=== PATIENT | male | born 1970 | race Caucasian/White ===

== ENCOUNTER 2024-03-19 11:38 | Observation (INO) | payer BC, MEDICAID, SELFPAY ==
[2024-03-19] VITALS (8 sets, daily range): BP systolic 119–131; BP diastolic 70–91; PULSE 82–102; RESP 16–20; TEMP 36.3–37.1; O2SAT 97–100; BMI 26.2; BMI 26.4
--- NOTE | ~2024-03-19 | CT_ITS ---
EXAMINATION: CTA chest PE abdomen pel DATE: 03/19/2024 16:04 INDICATION: Chest pain, shortness of breath, elevated d-dimer. Abdominal pain. TECHNIQUE: Computed tomography angiography (CTA) of the chest was performed with 100 mL Omnipaque-350 intravenous contrast timed to evaluate the pulmonary arteries. Coronal maximum intensity projection 3D-reconstructions were created by the technologist. Automated exposure control and iterative reconst ruction technique were employed. Exam dose: 852.49 mGy-cm total exam DLP. COMPARISON: None. FINDINGS: There is prominent pericardial effusion. There is enhancement of the pericardium consistent with pericarditis. No thoracic aortic aneurysm or dissection. Mild prominence of the hilar and mediastinal lymph nodes, which may be reactive. Mild left pleural effusion. Bullous changes noted in both apical areas and to a lesser extent the lower lobes. There is bibasilar infiltrate or atelectasis, primarily on the left. Small sliding hiatal hernia. Multiple gallstones are noted, in the 10 mm range. No gallbladder wall thickening or pericholecystic fluid or fat stranding. The liver, spleen, pancreas and the bile ducts and pancreatic duct are normal. Normal morphology of the adrenal glands. No renal mass lesion or urinary tract calculus or hydroureteronephrosis. There is prostate enlargement calcifications. Moderate diffuse thickening of the urinary bladder wall , likely due to the prostatomegaly. Normal caliber of the abdominal aorta. No intraperitoneal or retroperitoneal or pelvic mass lesion or adenopathy or ascites. Normal appendix. No bowel obstruction or intraperitoneal free air. Very small fat-containing left inguinal hernia. Approximately 1.6 x 2.2 cm fat-containing umbilical hernia. No suspicious osteolytic or osteoblastic lesions are noted. IMPRESSION: Pericarditis, prominent pericardial effusion Bibasilar lobe dependent atelectasis, left greater than right Mild left pleural effusion Cholelithiasis Prostate enlargement calcifications, moderate diffuse bladder wall thickening Small sliding hiatal hernia. Normal appendix Reviewed, dictated and finalized at [facility]. Reviewed, dictated and finalized at [facility].
--- NOTE | ~2024-03-19 | XR_ITS ---
EXAMINATION: XR chest 2V DATE: 03/19/2024 12:07 INDICATION: Shortness of breath. Chest pain. TECHNIQUE: Frontal and lateral views of the chest were obtained. COMPARISON: None. FINDINGS: There is a small left pleural effusion. There are airspace opacities at left lung base. The re is mild scarring at the lung apices. No pneumothorax. The heart size is normal. IMPRESSION: 1. Small left pleural effusion. 2. Airspace opacities at left lung base, consistent with atelectasis versus pneumonia. Reviewed, dictated and finalized at [facility]. IMPRESSION: 1. Small left pleural effusion. 2. Airspace opacities at left lung base, consistent with atelectasis versus pne umonia.
--- NOTE | ~2024-03-19 | XR_ITS ---
EXAMINATION: XR chest 1V portable DATE: 03/21/2024 09:13 INDICATION: Leukocytosis. TECHNIQUE: frontal view of the chest was obtained. COMPARISON: Chest radiograph and CT dated 03/19/2024 FINDINGS: Unchanged right apical pleural-parenchymal scarring with some bullous changes related to emphysema at the paramediastinal right upper lobe. The prior small left pleural effusion has resolved. There is a persistent airspace opacity in the left lower lung zone which could represent atelectasis or pneumon ia. No pulmonary edema, pleural effusion or pneumothorax. Heart size is normal. IMPRESSION: 1. Persistent airspace opacity left lower lung zone which could represent atelectasis or pneumonia. 2. Mild emphysema. Reviewed, dictated and finalized at location [facility]. IMPRESSION: 1. Persistent airspace opacity left lower lung zone which could represent atele ctasis or pneumonia. 2. Mild emphysema.
--- NOTE | 2024-03-19 11:42 | ECG_ITS ---
Test Date: 2024-03-19 11:44:06 Measurements Intervals [place] Rate: 101 P: 34 LA: 164 QRS: 15 QRSD: 104 T: 85 QT: 305 QTc: 395 Interpretive Statements SINUS TACHYCARDIA POSSIBLE LEFT ATRIAL ENLARGEMENT INCOMPLETE RIGHT BUNDLE BRANCH BLOCK MINIMAL Q WAVES- ANTEROLATERAL LEADS BORDERLINE T WAVE ABNORMALITY- DIFFUSE LEADS BORDERLINE ECG No previous ECG available for comparison Electronically Signed On 03-19-2024 12:47:15 CDT by Khoi Ni D.O.
[2024-03-19 12:06] LABS: Basophils Absolute Auto 0.1 K/mm3 (0.0-0.1); Basophils Percent Auto 0.5 % (0.2-1.2); Eosinophils Absolute Auto 0.4 K/mm3 (0-0.3); Eosinophils Percent Auto 2.1 % (0-4.4); Hematocrit 39.1 % (42.0-52.0); Hemoglobin 12.8 g/dL (14.0-18.0); Immature Granulocyte Absolute 0.13 K/mm3 (0.00-0.031); Immature Granulocyte Percent A 0.7 % (0-0.5); Lymphocytes Absolute Auto 2.36 K/mm3 (0.9-3.2); Lymphocytes Percent Auto 11.9 % (18.3-44.2); Mean Corpuscular HGB Conc 32.7 g/dl (32-36); Mean Corpuscular Hemoglobin 30.3 pg (26-34); Mean Corpuscular Volume 92.7 fl (80-100); Mean Platelet Volume 8.9 fl (7.4-10.4); Monocytes Absolute Auto 1.9 K/mm3 (0.1-0.6); Monocytes Percent Auto 9.5 % (2.6-8.5); Neutrophils Absolute Auto 14.9 K/mm3 (1.3-6.7); Neutrophils Percent Auto 75.3 % (45.5-73.1); Platelet Count Result 725 k/mm3 (150-375); Red Blood Count 4.22 M/mm3 (4.6-6.20); Red Cell Distribution Width 14.7 % (11.5-14.5); White Blood Count 19.8 K/mm3 (4.5-10.0)
[2024-03-19 12:17] LABS: INR 1.2; Prothrombin Time 15.1 Seconds (11.1-14.7)
[2024-03-19 12:19] LABS: Alanine Aminotransferase 90 U/L (6-50); Albumin Level 3.8 g/dL (3.5-5.1); Alkaline Phosphatase 197 U/L (38-126); Anion Gap 9 mmol/L (4-12); Aspartate Amino Transferase 40 U/L (17-59); Bilirubin,Total 0.6 mg/dL (0.2-1.3); Blood Urea Nitrogen 13 mg/dL (9-20); Carbon Dioxide 26 mmol/L (22-30); Chloride 98 mmol/L (98-107); Estimated CRCL calculation 92 ml/min; Estimated Glomerular Filt Rate > 60; Glucose 165 mg/dL (65-110); Lipase 49 U/L (23-300); Potassium 4.4 mmol/L (3.4-5.0); Sodium 133 mmol/L (137-145)
[2024-03-19 12:30] LABS: Troponin I < 0.012 ng/mL (0.000-0.034)
--- NOTE | 2024-03-19 14:14 | ED.SOB ---
HPI - SOB/Dyspnea General Chief Complaint: Shortness of Breath/Dyspnea <MALATHI Rebollar Last Filed: 03/19/24 18:42> Stated Complaint: SOB, pain <MALATHI Rebollar Last Filed: 03/19/24 18:42> Time Seen by Provider: 03/19/24 14:12 <MALATHI Rebollar Last Filed: 03/19/24 18:42> Source: patient <MALATHI Rebollar Last Filed: 03/19/24 18:42> Mode of arrival: ambulatory <MALATHI Rebollar Last Filed: 03/19/24 18:42> Limitations: no limitations <MALATHI Rebollar Last Filed: 03/19/24 18:42> History of Present Illness HPI Narrative: This is a 53-year-old male that presents to the emergency department for left-sided chest /abdominal pain. Ongoing over the last several days. Associated with fevers, cough, congestion. Reports he feels dehydrated. Reports shortness of breath. Denies vomiting or diarrhea. <MALATHI Rebollar Last Filed: 03/19/24 18:42> Related Data Home Medications: Home Medications Medication Instructions Recorded Confirmed No Home Medications 03/19/24 03/19/24 <MALATHI Rebollar Last Filed: 03/19/24 18:42> Allergies/Adverse Reactions: Allergies Allergy/AdvReac Type Severity Reaction Status Date / Time No Known Allergies Allergy Verified 03/19/24 15:11 <MALATHI Rebollar Last Filed: 03/19/24 18:42> Review of Systems Review of Systems: CONSTITUTIONAL: Denies fever ENT: Reports congestion. Denies sore throat CARDIOVASCULAR: Reports chest pain. Denies edema. RESPIRATORY: Reports cough or dyspnea. GASTROINTESTINAL: Reports abdominal pain, nausea. Denies vomiting, or diarrhea. GENITOURINARY: Denies dysuria or hematuria. <MALATHI Rebollar Last Filed: 03/19/24 18:42> All systems reviewed & are unremarkable except as noted in HPI and below <MALATHI Rebollar Last Filed: 03/19/24 18:42> [facility] Past Medical History Medical History: Medical History (Updated 03/19/24 @ 23:35 by Annette Rai PA-C) Nicotine dependence Pericarditis (2017) <Janae Samuel PA-C - Last Filed: 03/19/24 18:42> Surgical History Surgical History: Surgical History (Updated 03/19/24 @ 23:29 by Annette Rai PA-C) History of arthroscopic knee surgery Hip to wrist. History of bone graft <Janae Samuel PA-C - Last Filed: 03/19/24 18:42> Family History Family History: Family History Father Cerebrovascular accident Sibling Systemic lupus erythematosus <Janae Samuel PA-C - Last Filed: 03/19/24 18:42> Social History Social History: Social History (Updated 03/19/24 @ 23:31 by Annette Rai PA-C) Social History: Surrogate medical decision maker: Samira Dunn. Code status: Full code. Smoking packs per day: 1 Smoking cigarettes per day: 20.0 Years smoked: 25 Smoking pack-years: 25.00 Smoking status: Current every day smoker Tobacco type: cigarettes Alcohol intake: former Substance use: current Substance use type: marijuana Do You Feel Safe in your Home?: Yes Lack of Transportation: YES Lack of Food: Never True Current Housing: I Have Housing Concerned About Future Housing: No Difficulty Paying Gas/Electric Bills: No Difficulty Paying for Meds: No Currently Unemployed: No Education: Trade/Vocational Certificate Difficulty w/ Childcare or Family Care: No Additional living arrangements comments: Lives in [place], helps care for his elderly mother. Additional occupation/education comments: [employer]. Spiritual care concerns: Yes (episcopal) <Janae Samuel PA-C - Last Filed: 03/19/24 18:42> Exam Narrative: GENERAL: Well-appearing, well-nourished, and in no acute distress. HEAD: Normocephalic, atraumatic. EYES: EOMI. ENT: Nares clear, no rhinorrhea or epistaxis. Mucous membranes moist. Oropharynx without tonsillar hyper
[2024-03-19] MEDS: SODIUM CHLORIDE 0.9% IV 500 ML 999 ML IV CONT (15:13)
[2024-03-19] MEDS: KETOROLAC 15 MG/ML VIAL (*BKC) IV PUSH (15:13)
[2024-03-19 15:15] LABS: Troponin I < 0.012 ng/mL (0.000-0.034)
[2024-03-19 15:29] LABS: Influenza A QL RT-PCR Negative (Negative); Influenza B QL RT-PCR Negative (Negative); RSV RNA, RT-PCR Negative (Negative); SARS-CoV-2 RNA PCR Negative (Negative)
[2024-03-19 15:31] LABS: D Dimer 4.56 ug/mL (<0.48)
[2024-03-19 17:48] LABS: Lactic Acid Reflex 0.9 mmol/L (0.7-2.0)
[2024-03-19 17:58] LABS: Troponin I < 0.012 ng/mL (0.000-0.034)
[2024-03-19 18:05] LABS: CRP 17.4 mg/dL (<1.0)
[2024-03-19] MEDS: AZITHROMYCIN 500 MG/NS 250 ML 500 MG/250 ML BAG 250 MG IVPB (18:14)
[2024-03-19] MEDS: COLCHICINE 0.6 MG TABLET PO ×2 (18:14→20:22)
--- NOTE | 2024-03-19 19:03 | ADMGEN ---
This patient, Ravin Dunn, was admitted to IMU Room 213-01. Patient/family oriented to hospital policies and general routines including ID bracelet, bed and alarms, visiting hours, pain management, procedures, bathroom and other care routines, personal items, smoking policy, room service/diet, and visiting hours. Information on how to activate the Rapid Response Team has been discussed. Patient/Family are encouraged to report perceived risks to care and to ask questions if they do not understand what they are told or what they should do.
[2024-03-19] MEDS: IBUPROFEN 600 MG TABLET PO (20:22)
[2024-03-19 20:23] LABS: Erythrocyte Sedimentation Rate 90 mm/hr (0-20)
[2024-03-19 20:26] LABS: Procalcitonin 0.1 ng/mL
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
[2024-03-19] MEDS: MORPHINE SULFATE (*CRX) 2 MG/ML INJ IV PUSH (21:41)
[2024-03-20] VITALS (17 sets, daily range): BP systolic 103–124; BP diastolic 65–79; PULSE 67–90; RESP 18–20; TEMP 36.1–36.7; O2SAT 97–100
[2024-03-20 04:03] LABS: Mean Corpuscular HGB Conc 32.4 g/dl (32-36); Mean Corpuscular Hemoglobin 29.9 pg (26-34); Mean Platelet Volume 8.5 fl (7.4-10.4); Platelet Count Result 650 k/mm3 (150-375); Red Blood Count 4.02 M/mm3 (4.6-6.20); Red Cell Distribution Width 14.8 % (11.5-14.5); White Blood Count 16.4 K/mm3 (4.5-10.0)
[2024-03-20] MEDS: IBUPROFEN 600 MG TABLET PO ×3 (04:13→20:48)
[2024-03-20 04:14] LABS: Anion Gap 9 mmol/L (4-12); Blood Urea Nitrogen 13 mg/dL (9-20); Calcium 8.9 mg/dL (8.4-10.2); Carbon Dioxide 27 mmol/L (22-30); Chloride 99 mmol/L (98-107); Estimated CRCL calculation 83 ml/min; Estimated Glomerular Filt Rate > 60; Glucose 93 mg/dL (65-110); Magnesium 2.2 mg/dL (1.6-2.3); Potassium 5.4 mmol/L (3.4-5.0); Sodium 135 mmol/L (137-145)
[2024-03-20] MEDS: MORPHINE SULFATE (*CRX) 2 MG/ML INJ IV PUSH ×2 (04:14→21:57)
[2024-03-20 04:57] LABS: Strep Group A RT-PCR NOT DETECTED (Negative)
[2024-03-20] MEDS: COLCHICINE 0.6 MG TABLET PO ×2 (08:10→20:47)
--- NOTE | 2024-03-20 11:35 | PM.CNCAR ---
Assessment and Plan Assessment and plan (1) Pericarditis: Onset Date: 2016 Qualifiers: Chronicity: acute Pericarditis type: unspecified type Qualified Code(s): I30.9 - Acute pericarditis, unspecified Code(s): I31.9 - Disease of pericardium, unspecified Status: Acute Assessment and Plan: Chest pain worsens with inspiration, laying down. ESR and CRP are both elevated. Seems consistent with pericarditis, suspect possibly viral given his symptoms prior to presentation. Continue Colchicine 0.6mg BID and Ibuprofen 600mg Q8H. Echocardiogram ordered and pending. Should be on Colchicine for total of 3 months. Following the resolution of his chest pain, the Ibuprofen dose should be tapered down. (2) Pericardial effusion: Code(s): I31.39 - Other pericardial effusion (noninflammatory) Status: Acute Assessment and Plan: Prominent pericardial effusion noted on CT scan. No clinical evidence of tamponade. Echocardiogram ordered and pending, which will be done on Thursday. (3) Leukocytosis: Code(s): D72.829 - Elevated white blood cell count, unspecified Status: Acute Assessment and Plan: Infectious workup as per primary team. Plan Recommendations and plan discussed with Hospitalist. History of Present Illness History of Present Illness Consult date/time: 03/20/24 11:35 Requesting physician: Janae Samuel PA-C Consult reason: Other (Pericarditis ) Reason For Visit: Pericarditis Narrative: This is a 53 year old male with history of pericarditis 17 years ago from strep throat who presented to [facility] ER with left sided chest pain that gets worse with inspiration and laying down. Reports subjective fevers at home. Reports feeling dehydrated at home. Some shortness of breath as well. Workup thus far shows: WBC 19.8 Platelet count of 725 ESR 90 Troponins are negative x 3 CRP 17.4 CTA shows pericarditis, prominent pericardial effusion, mild left pleural effusion EKG shows sinus tachycardia with nonspecific T wave abnormality and incomplete right bundle branch block Started on Ibuprofen and Colchicine on admission, and is feeling a bit better this morning. Review of Systems Review of Systems: All systems reviewed & are unremarkable except as noted in HPI and below (HPI) [facility] Past Medical History Medical History Nicotine dependence Pericarditis (2017) Surgical History Surgical History History of arthroscopic knee surgery Hip to wrist. History of bone graft Family History Family History Father Cerebrovascular accident Sibling Systemic lupus erythematosus Social History Social History Social History: Surrogate medical decision maker: Samira Dunn. Code status: Full code. Smoking packs per day: 1 Smoking cigarettes per day: 20.0 Years smoked: 25 Smoking pack-years: 25.00 Smoking status: Current every day smoker Tobacco type: cigarettes Alcohol intake: former Substance use: current Substance use type: marijuana Do You Feel Safe in your Home?: Yes Lack of Transportation: YES Lack of Food: Never True Current Housing: I Have Housing Concerned About Future Housing: No Difficulty Paying Gas/Electric Bills: No Difficulty Paying for Meds: No Currently Unemployed: No Education: Trade/Vocational Certificate Difficulty w/ Childcare or Family Care: No Additional living arrangements comments: Lives in [place], helps care for his elderly mother. Additional occupation/education comments: set up inspector. Spiritual care concerns: Yes (congregational) Meds Home Medications and Allergies Home Medications Medication Instructions Recorded Confirmed Type No Home Medications 03/19/24 03/19/24 Hi
--- NOTE | 2024-03-20 15:15 | PM.IMPN ---
Progress Note: A&P Assessment and Plan (1) Pericarditis: Onset Date: 2016 Qualifiers: Chronicity: acute Pericarditis type: unspecified type Qualified Code(s): I30.9 - Acute pericarditis, unspecified Code(s): I31.9 - Disease of pericardium, unspecified Status: Acute (2) Leukocytosis: Code(s): D72.829 - Elevated white blood cell count, unspecified Status: Acute (3) Thrombocytosis: Code(s): D75.839 - Thrombocytosis, unspecified Status: Acute (4) Nicotine dependence: Code(s): F17.200 - Nicotine dependence, unspecified, uncomplicated Status: Acute Plan Pericarditis ESR elevated, chest pain improving now only on deep inspiration Continue colchicine and ibuprofen Echo pending Appreciate Cardiology input. Follow respiratory panel. DVT prophylaxis with subQ Lovenox. Subjective Date/time seen: 03/20/24 15:15 Interval history: Patient noted chest pain has improved and only occurs with inspiration ECHO pending Review of Systems Review of Systems: 12 systems were reviewed and are negative except for as per HPI. Exam Narrative: General: alert and comfortable Eyes: EOMI, PERRLA ENNT External ears normal, Neck is supple, no masses, Respiratory systems: Clear to auscultation Cardiovascular S1, S2, normal rhythm, no murmur, rub, or gallop; no thrill or palpable murmurs on palpation. Gastrointestinal: soft, non-tender, and non-distended abdomen with no masses; BS present Skin: no rash, lesions, ulcerations, subcutaneous nodules or induration Musculoskeletal: no abnormality and no tenderness, normal ROM Neurologic: Alert and oriented x3, non focal Mental Status Exam: normal affect Objective Data Vital Signs Vital Signs: Vital Signs - 24 hr 03/19/24 15:16 03/19/24 15:16 03/19/24 16:29 Temperature Pulse Rate 93 85 Respiratory Rate 20 19 Blood Pressure 128/80 119/82 Pulse Oximetry 99 99 97 Oxygen Delivery Room Air 03/19/24 17:29 03/19/24 18:44 03/19/24 20:00 Temperature 97.4 F L 98.7 F Pulse Rate 83 93 95 Respiratory Rate 18 16 18 Blood Pressure 129/91 H 131/74 122/80 Pulse Oximetry 97 100 99 Oxygen Delivery 03/19/24 20:00 03/19/24 20:20 03/19/24 22:00 Temperature Pulse Rate 100 82 Respiratory Rate Blood Pressure Pulse Oximetry Oxygen Delivery Room Air 03/20/24 00:00 03/20/24 00:00 03/20/24 00:00 Temperature 97.6 F Pulse Rate 81 74 Respiratory Rate 18 Blood Pressure 117/79 Pulse Oximetry 99 Oxygen Delivery Room Air 03/20/24 02:00 03/20/24 04:00 03/20/24 04:00 Temperature 98.0 F Pulse Rate 70 73 Respiratory Rate 18 Blood Pressure 112/65 Pulse Oximetry 99 Oxygen Delivery Room Air 03/20/24 04:00 03/20/24 06:00 03/20/24 07:53 Temperature 97.2 F L Pulse Rate 72 72 67 Respiratory Rate 18 Blood Pressure 103/68 Pulse Oximetry 97 Oxygen Delivery 03/20/24 08:00 03/20/24 08:00 03/20/24 10:00 Temperature Pulse Rate 73 75 Respiratory Rate 18 Blood Pressure Pulse Oximetry 97 Oxygen Delivery Room Air 03/20/24 11:23 03/20/24 12:00 03/20/24 12:00 Temperature 97.0 F L Pulse Rate 77 79 Respiratory Rate 20 20 Blood Pressure 114/75 Pulse Oximetry 99 97 Oxygen Delivery Room Air 03/20/24 14:00 Temperature Pulse Rate 80 Respiratory Rate Blood Pressure Pulse Oximetry Oxygen Delivery Intake/Output Intake/Output: Intake & Output 03/17/24 03/18/24 03/19/24 03/20/24 23:59 23:59 23:59 23:59 Intake Total 800 1442 Output Total 300 Balance 800 1142 Meds/Results Medications: Active Medications Generic Name Dose Route Start Last Admin Trade Name Freq PRN Reason Stop Dose Admin Acetaminophen 650 mg 03/19/24 23:41 Acetaminophen 325 Mg Tablet PO Q6H PRN Mild Pain (1-3) or Fever Hydrocodone Bitart/Acetaminophen 1 tab 03/19/24 21:22 Hydrocodone/Acetaminop
[2024-03-20] MEDS: AZITHROMYCIN 500 MG/NS 250 ML 500 MG/250 ML BAG 250 MG IVPB (17:34)
[2024-03-20] MEDS: HYDROcodone/acetaminophen (*CRX) 5-325 MG TABLET 1 TAB PO (18:51)
[2024-03-21] VITALS (10 sets, daily range): BP systolic 111–131; BP diastolic 83–91; PULSE 73–90; RESP 18–20; TEMP 35.6–36.6; O2SAT 97–100
[2024-03-21] MEDS: HYDROcodone/acetaminophen (*CRX) 5-325 MG TABLET 1 TAB PO (03:47)
[2024-03-21 05:11] LABS: Basophils Absolute Auto 0.1 K/mm3 (0.0-0.1); Basophils Percent Auto 0.6 % (0.2-1.2); Eosinophils Absolute Auto 0.6 K/mm3 (0-0.3); Eosinophils Percent Auto 3.2 % (0-4.4); Hemoglobin 11.9 g/dL (14.0-18.0); Immature Granulocyte Absolute 0.17 K/mm3 (0.00-0.031); Lymphocytes Absolute Auto 2.63 K/mm3 (0.9-3.2); Lymphocytes Percent Auto 15.3 % (18.3-44.2); Mean Corpuscular HGB Conc 32.2 g/dl (32-36); Mean Corpuscular Hemoglobin 29.6 pg (26-34); Mean Platelet Volume 8.6 fl (7.4-10.4); Monocytes Absolute Auto 1.6 K/mm3 (0.1-0.6); Monocytes Percent Auto 9.4 % (2.6-8.5); Neutrophils Absolute Auto 12.1 K/mm3 (1.3-6.7); Neutrophils Percent Auto 70.5 % (45.5-73.1); Platelet Count Result 678 k/mm3 (150-375); Red Blood Count 4.02 M/mm3 (4.6-6.20); Red Cell Distribution Width 14.8 % (11.5-14.5); White Blood Count 17.2 K/mm3 (4.5-10.0)
[2024-03-21 05:22] LABS: Alanine Aminotransferase 86 U/L (6-50); Albumin Level 3.4 g/dL (3.5-5.1); Alkaline Phosphatase 195 U/L (38-126); Anion Gap 10 mmol/L (4-12); Aspartate Amino Transferase 50 U/L (17-59); Bilirubin,Total 0.2 mg/dL (0.2-1.3); Blood Urea Nitrogen 15 mg/dL (9-20); Calcium 8.7 mg/dL (8.4-10.2); Carbon Dioxide 23 mmol/L (22-30); Chloride 100 mmol/L (98-107); Estimated CRCL calculation 103 ml/min; Estimated Glomerular Filt Rate > 60; Glucose 103 mg/dL (65-110); Magnesium 2.1 mg/dL (1.6-2.3); Potassium 4.4 mmol/L (3.4-5.0); Sodium 133 mmol/L (137-145)
[2024-03-21] MEDS: IBUPROFEN 600 MG TABLET PO (05:40)
--- NOTE | 2024-03-21 06:00 | ECHO_ITS ---
Patient Info Name: Ravin Dunn Age: 53 years : 1970 Gender: Male Ht: 72 in Wt: 195 lbs BSA: 2.13 m2 HR: 76 bpm BP: 124 / 83 mmHg Heart Rhythm: Sinus Rhythm Technical Quality: Good Exam Date: 03/21/2024 9:53 AM Exam Location: Echo Lab Patient Status: Inpatient Admit Date: 03/19/2024 Staff Ordering Physician: Janae Samuel PA-C Medical Device Assembler: Herson Bartlett RDCS Attending Provider: Ellis Kelly MD Referring Physician: Jimmie ROWAN; Exam Type: CA echo doppler color flow Study Info Indications - pericarditis Complete two-dimensional, color flow and Doppler transthoracic echocardiogram is performed. Summary 1. Complete two-dimensional, color flow and Doppler transthoracic echocardiogram is performed. 2. Normal right and left ventricular size and systolic function with grade 1 diastolic noncompliance. 3. No valvular dysfunction. 4. Small to moderate circumferential pericardial effusion no clear evidence of for findings consistent with tamponade. Left Ventricle Left ventricular chamber dimension is normal. Left ventricular systolic function is normal, estimated at 55-60%. The left ventricular diastolic function is grade I diastolic dysfunction. Right Ventricle Right ventricular chamber dimension is normal. Left Atria Left atrial chamber dimension is normal. Right Atria Right atrial chamber dimension is normal. Aortic Valve The aortic valve is normal. Pulmonic Valve The pulmonic valve is normal. Mitral Valve The mitral valve has normal leaflets. Tricuspid Valve The tricuspid valve leaflets are normal. Pericardium/Pleural There is moderate pericardial effusion. Aorta The aortic root size at the sinus of Valsalva is normal. Left Ventricular Outflow Tract Name Value Normal LVOT 2D LVOT Diameter 2.1 cm LVOT Doppler LVOT Peak Gradient 4 mmHg LVOT Mean Gradient 2 mmHg LVOT VTI 24 cm LVOT VTI/AV VTI Ratio 1.1 LVOT Stroke Volume 85 ml LVOT CO 5.7 l/min LVOT CI 2.7 l/min/m2 Pulmonic Valve Name Value Normal PV Doppler PV Peak Gradient 5 mmHg Mitral Valve Name Value Normal MV Doppler MV Decel [place] 358 cm/s2 MV PHT 66 ms MV Area (PHT) 3.3 cm2 4.0-5.0 MV Diastolic Function MV E Peak Velocity 81 cm/s MV A Peak Velocity 80 cm/s
[2024-03-21] MEDS: COLCHICINE 0.6 MG TABLET PO (08:16)
[2024-03-21] MEDS: ENOXAPARIN 40 MG/0.4 ML SYRINGE SUB-Q (08:16)
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
[2024-03-23 12:13] LABS: Anti Nuclear Antibody Pattern Nuclear, Speckled; Anti Nuclear Antibody Titer 1:40 titer
== END 2024-03-21 13:21 | disposition home or self-care (01) ==
LOC: ANHED 14:36 → ANHIMU 18:42
PROVIDERS: Physician Assistant; Student in an Organized Health Care Education/Training Program; Admitting Provider Internal Medicine; Emergency Provider Physician Assistant; Visit Provider Internal Medicine
DX: I30.9 Acute pericarditis, unspecified (principal); J18.9 Pneumonia, unspecified organism; D75.839 Thrombocytosis, unspecified; F17.210 Nicotine dependence, cigarettes, uncomplicated; F12.90 Cannabis use, unspecified, uncomplicated; Z20.822 Contact with and (suspected) exposure to COVID-19
CPT/HCPCS: 36415; 71045; 71046; 71275; 74177; 80048; 80053; 83605; 83690; 83735; 84145; 84443; 84484; 85025; 85027; 85380; 85610; 85652; 85730; 86038; 86039; 86140; 87040; 87254; 87637; 87651; 93005; 93306; 96361; 96365; 96366; 96367; 96372; 96375; 96376; 99285; A9270; G0378; J0456; J0696; J1650; J1885; J2270; J7040; Q9967

== ENCOUNTER 2024-11-20 06:03 | Emergency (ER) | payer MEDICAID, SELFPAY ==
[2024-11-20] VITALS (18 sets, daily range): BP systolic 140–185; BP diastolic 106–119; PULSE 65–82; RESP 16–18; O2SAT 91–100
--- NOTE | ~2024-11-20 | XR_ITS ---
[id number] 11/20/2024 06:46 Indication: Status post fall. Left knee deformity. Procedure: 2 views left knee Comparison: No prior studies for comparison. Findings: There is a transversely oriented patellar fracture with approximately 2.5 cm of distraction . Moderate soft tissue swelling. No foreign bodies. Impression: 1: Nondisplaced transversely oriented patellar fracture. Reviewed, dictated and finalized at location A. Impression: 1: Nondisplaced transversely oriented patellar fracture.
--- OUTSIDE RECORDS SUMMARY | 2024-11-20 06:06 | XMS_ITS | Patient Health Record ---
Author Organization [facility] Address [address] [place] [address] Care Team Providers Care Field Administrator Name Role Phone Conrad Asaf Primary Care Provider Allergies No Known Allergies Reason For Referral No Information Medications Medication SIG (Take, Route, Frequency, Duration) Notes Start Date End Date Status levoFLOXacin 750 MG TAKE 1 TABLET BY KAREN TH DAILY Oral for 7 Days Active levoFLOXacin 750 MG TAKE 1 TABLET BY KAREN DAILY Oral for 7 Days Active Colchicine 0.6 MG TAKE 1 TABLET BY KAREN TWICE DAILY Oral for 15 Days Active GoodSense Nicotine 4 MG 1 piece chew for 30 minutes as needed for smoking cessation up to 16 pieces per day Mouth/Throat every hour 03/25/2024 Active Varenicline Tartrate 1 MG 1 tablet after eating with a full glass of water (BEGIN AFTER COMPLETING 0.5 MG TAB) Orally Twice a day for 30 03/25/2024 Active Varenicline Tartrate 0.5 MG 1 tablet after eating with a full glass of water Orally DIRECTED for 7 days DAILY FOR THREE DAYS, TWICE DAILY FOR 4 DAYS, THEN BEGIN 1 MG TABS 03/25/2024 Active Social History Tobacco Use: Social History Observation Description Date Details (start date - stop date) Current Smoker NA - NA Tobacco Control (Standard) Question Answer Notes Tobacco use: Current every day smoker Additional Findings: Tobacco user Moderate cigar ette smoker (10-19 cigs/day) Problems Problem Type SNOMED Code ICD Code Onset Dates Problem Status W/U Status Risk Notes Problem Nicotine dependence, unspecified, uncomplicated (F17.200) Active confirmed Vital Signs Heart Rate 87 /min 03/25/2024 Oximetry 97 % 03/25/2024 Blood pressure diastolic 82 mm Hg 03/25/2024 Height 72.00 in 03/25/2024 Blood pressure systolic 110 mm Hg 03/25/2024 Weight 193.00 lbs 03/25/2024 BMI 26.17 kg/m2 03/25/2024 Encounters Encounter Location Date Provider Diagnosis [facility] [address] [place] [address] [place] [address] 03/25/2024 Asaf Conrad Pericarditis, unspecified chronicity, unspecified type I31.9 ; Pneumonia J18.9 and Nicotine dependence, unspecified, uncomplicated F17.[address] [place] [address] 03/24/2024 Asaf Conrad Assessments Encounter Date Diagnosis (ICD Code) Assessment Notes Treatment Notes Treatment Clinical Notes Section Notes 03/25/2024 Pneumonia (ICD-10 - J18.9) COMPLETE LEVAQUIN PRESCRIBED 03/25/2024 Pericarditis, unspecified chronicity, unspecified type (ICD-10 - I31.9) CONTINUE COLCHICINE FOR ABOUT 3 MONTHS. 03/25/2024 Nicotine dependence, unspecified, uncomplicated (ICD-10 - F17.200) Plan Of Treatment No Information Insurance Providers Payer Name Payer Address Payer Phone Subscriber Number Group Number Insured Name Patient Relationship to Insured Coverage Start Date Coverage End Date MEDICAID [facility] [address] [place] [phone] [id number] Ravin Nieves Self - patient is the insured 4 Medical (General) History Surgical History Surgery Date(Month/Year) bone graft 1989 knee surgery Hospitalization History Reason Date(Month/Year) breathing isses 2009 breathing issues 04/05
--- OUTSIDE RECORDS SUMMARY | 2024-11-20 06:06 | XMS_ITS | Clinical Summary ---
Author Organization [facility] Address [address] [place] [address] Care Team Providers Care Medical Research Associate Name Role Phone None, Physician Primary Care Provider Unavailabl e Source Comments [facility],non-owned Affiliates and Associated Physician Practices is amultiple site organization consisting of ambulatory clinics and hospital sitesin [place], [place], [place] and [place]. This disclosure is being madepursuant to the Care Everywhere program and may not contain all information available regarding this patient. Last updated 18.[facility] Health Allergies No known active allergies Social History Tobacco Use Types Packs/Day Years Used Date Smoking Tobacco: Every Day Cigarettes Tobacco Cessation:Ready to Q uit: Not Asked; Counseling Given: Not Answered Alcohol Use Standard Drinks/Week Comments Not Currently 0 (1 standard drink = 0.6 oz pur e alcohol) AUDIT-C Answer Date Recorded Q1: How often do you have a drink containing alc ohol? Patient declined 01/05/2024 Q2: How many drinks containi ng alcohol do you have on a typical day when you are drinking? Patient declined 01/05/2024 Q3: How often do you have si x or more drinks on one occasion? Patient declined 01/05/2024 Sex and Gender Information Value Date Recorded Sex Assigned at Not on file Legal Sex Male 9:52 PM CDT Gender Identity Not on file Sexual Orientation Not on file Last Filed Vital Signs Vital Sign Reading Time Taken Comments Blood Pressure 141/98 01/05/2024 11:15 PM CDT Pulse 74 01/05/2024 11:15 PM CDT Temperature 36.3 C (97.3 F) 01/05/2024 9:58 PM CDT Respiratory Rate 19 01/05/2024 11:15 PM CDT Oxygen Saturation 95% 01/05/2024 11:15 PM CDT Inhaled Oxygen Concentration - - Weight 88.5 kg (195 lb) 01/05/2024 10:00 PM CDT Height 185.4 cm (6' 1 ) 01/05/2024 10:00 PM CDT Body Mass Index 25.73 01/05/2024 10:00 PM CDT Plan of Treatment Health Maintenance Due Date Last Done Comments COLOGUARD (AGES 45-75) - COL ON CA SCREENING 1968 COLON MONITORING 1968 COLONOSCOPY - COLON CA SCREENING 1968 CT COLONOGRAPHY - COLON CA SCREENING 1968 Colorectal Cancer Screening 1968 FIT - COLON CA SCREENING 1968 FLEX SIG - COLON CA SCREENING 1968 LIPID TESTING 1968 HIV SCREENING 1983 HEPATITIS C SCREENING 07/21/1986 DTAP/TDAP/TD VACCINES (1 - Tdap) 1987 HEPATITIS B VACCINE (1 of 3 - 19+ 3-dose series) 1987 PNEUMOCOCCAL VACCINE 50+ (1 of 2 - PCV) 1987 ZOSTER VACCINE (1 of 2) 2018 COVID-19 VACCINE (1 - 2023-2 5 season) 2024 DEPRESSION SCREENING 07/13/2024 INFLUENZA VACCINE (Season Ended) 2025 HIB VACCINE Aged Out No longer eligi ble based on patient's age to complete this topic HPV VACCINE Aged Out No longer eligi ble based on patient's age to complete this topic MENINGOCOCCAL (Group B) VACC INE SHARED DECISION-MAKING Aged Out No longer eligibl e based on patient's age to complete this topic MENINGOCOCCAL GROUPS A/C/Y/W VACCINE Aged Out No longer eligible b ased on patient's age to complete this topic Insurance MEDICAID - [place] Care Teams Medical Research Associate Relationship Specialty Start Date End Date None, Physician [address] [place] [address] PCP - General 01/05/24
[2024-11-20] MEDS: HYDROmorphone HCL INJ (*CRX) 2 MG/ML VIAL 1 MG IM (06:19)
[2024-11-20] MEDS: TETANUS,DIPHTHERIA,AC PERTUSSIS ADULT (0.5 ML) BOOSTRIX IM (06:19)
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
--- OUTSIDE RECORDS SUMMARY | 2024-11-20 07:20 | XMS_ITS | Clinical Summary ---
Author Organization [facility] Address [address] [place] [address] Care Team Providers Care Project Systems Engineer Name Role Phone None, Physician Primary Care Provider Unavailabl e Source Comments [facility],non-owned Affiliates and Associated Physician Practices is amultiple site organization consisting of ambulatory clinics and hospital sitesin [place], [place], [place] and [place]. This disclosure is being madepursuant to the Care Everywhere program and may not contain all information available regarding this patient. Last updated 18.[facility] Health Allergies No known active allergies Social [...] to complete this topic [place] [address] Care Teams Project Systems Engineer Relationship Specialty Start Date End Date None, Physician [address] [place] [address] PCP - General 01/05/24
[2024-11-20] MEDS: HYDROmorphone HCL INJ (*CRX) 2 MG/ML VIAL 1 MG IV PUSH (07:30)
[2024-11-20] MEDS: LACTATED RINGERS 1,000 ML 999 ML IV CONT ×2 (07:30)
[2024-11-20] MEDS: LACTATED RINGERS 500 ML 999 ML IV CONT (07:31)
[2024-11-20 07:49] LABS: Basophils Absolute Auto 0.1 K/mm3 (0.0-0.1); Basophils Percent Auto 0.3 % (0.2-1.2); Eosinophils Absolute Auto 0.3 K/mm3 (0-0.3); Eosinophils Percent Auto 1.8 % (0-4.4); Hematocrit 47.7 % (42.0-52.0); Hemoglobin 15.5 g/dL (14.0-18.0); Immature Granulocyte Absolute 0.04 K/mm3 (0.00-0.031); Immature Granulocyte Percent A 0.3 % (0-0.5); Lymphocytes Absolute Auto 2.48 K/mm3 (0.9-3.2); Lymphocytes Percent Auto 16.2 % (18.3-44.2); Mean Corpuscular HGB Conc 32.5 g/dl (32-36); Mean Corpuscular Hemoglobin 30.4 pg (26-34); Mean Corpuscular Volume 93.5 fl (80-100); Mean Platelet Volume 10.2 fl (7.4-10.4); Monocytes Absolute Auto 1.1 K/mm3 (0.1-0.6); Monocytes Percent Auto 7.2 % (2.6-8.5); Neutrophils Absolute Auto 11.4 K/mm3 (1.3-6.7); Neutrophils Percent Auto 74.2 % (45.5-73.1); Platelet Count Result 331 k/mm3 (150-375); Red Cell Distribution Width 14.1 % (11.5-14.5); White Blood Count 15.4 K/mm3 (4.5-10.0)
[2024-11-20 08:01] LABS: Alanine Aminotransferase 23 U/L (6-50); Albumin Level 4.2 g/dL (3.5-5.1); Alkaline Phosphatase 79 U/L (38-126); Anion Gap 8 mmol/L (4-12); Aspartate Amino Transferase 37 U/L (17-59); Bilirubin,Total 1.1 mg/dL (0.2-1.3); Blood Urea Nitrogen 15 mg/dL (9-20); Calcium 8.8 mg/dL (8.4-10.2); Carbon Dioxide 25 mmol/L (22-30); Chloride 104 mmol/L (98-107); Estimated CRCL calculation 68 ml/min; Estimated Glomerular Filt Rate > 60; Glucose 161 mg/dL (65-110); Potassium 3.7 mmol/L (3.4-5.0); Sodium 137 mmol/L (137-145)
[2024-11-20 08:17] LABS: INR 0.9; Prothrombin Time 12.8 Seconds (11.1-14.7)
[2024-11-20 08:21] LABS: Partial Thromboplastin Time 23.3 Seconds (22.3-36.8)
--- NOTE | 2024-11-20 09:48 | PC.NURSE ---
To [facility] via [facility] em[facility]. Condition stable.
== END 2024-11-20 09:49 | disposition short-term general hospital (02) ==
PROVIDERS: Emergency Provider Emergency Medicine
DX: T20.20XA Burn of second degree of head, face, and neck, unspecified site, initial encounter (principal); T22.20XA Burn of second degree of shoulder and upper limb, except wrist and hand, unspecified site, initial encounter; T22.242A Burn of second degree of left axilla, initial encounter; S82.002A Unspecified fracture of left patella, initial encounter for closed fracture; T31.22 Burns involving 20-29% of body surface with 20-29% third degree burns; Z23 Encounter for immunization; F17.210 Nicotine dependence, cigarettes, uncomplicated; X08.8XXA Exposure to other specified smoke, fire and flames, initial encounter
CPT/HCPCS: 36415; 73560; 80053; 85025; 85610; 85730; 90471; 90715; 96360; 96372; 99291; J1171; J7120